=== PATIENT | male | born 1980 | race Hispanic/Latino ===

== ENCOUNTER → 2019-09-20 | Day surgery (SDC) | payer BC ==
[~2019-09-20] MED LIST: FENTANYL CITRATE/PF 100MCG/2 ML INJ ONE; GLUCAGON FOR INJ 1 MG VIAL ONE; HYOSCYAMINE 0.125 MG TAB ONE; LIDOCAINE HCL 2% LOCAL INJ 5 ML SDV VIAL INJ ONE; MIDAZOLAM HCL 2 MG/2 ML VIAL ONE; PROPOFOL IV EMULSION 10 MG/ML 20 ML VIAL ONE; SODIUM CHLORIDE 0.45% 1,000 ML ONE; ZYRTEC10 M3 PO
--- OUTSIDE RECORDS SUMMARY | 2019-09-20 13:39 | XMS REPORT | Summary of Care ---
Author Author [facility] Organization [facility] Address Unknown Phone Unavailable Encounter CLARE Jiménez(YVES) [phone] Date(s): 01/04/18 - 01/04/18 [facility] [address] [place] [address]- [phone] Encounter Diagnosis Arthritis of shoulder region, left (Discharge Diagnosis) - 01/04/18 Primary osteoarthritis, left shoulder (Final) - 01/09/18 Personal history of nicotine dependence (Final) - Discharge Disposition: Home or Self Care Attending Physician: Laz Hollis MD Vital Signs Most recent to 1 2 oldest [Reference Range]: Height 170.18 cm (01/04/18 12:23 PM) Temperature Oral 98.4 DegF 98 DegF [96.4-99.1 DegF] (01/04/18 2:18 PM) (01/04/18 12:23 PM) Blood Pressure 145/93 mmHg 152/89 mmHg [90-140/60-90 mmHg] *HI* *HI* (01/04/18 2:18 PM) (01/04/18 12:23 PM) Respiratory Rate 15 BRMIN 17 BRMIN [14-20 BRMIN] (01/04/18 2:18 PM) (01/04/18 12:23 PM) Peripheral Pulse 65 bpm 71 bpm Rate [60-100 bpm] (01/04/18 2:18 PM) (01/04/18 12:23 PM) Weight 90.909 kg (01/04/18 12:23 PM) Body Mass Index 31.39 m2 (01/04/18 12:23 PM) Problem List Condition Effective Dates Status Health Status Informan t Hyperkalemia(Confirm Resolved ed) Prediabetes(Confirme Resolved d) Allergies, Adverse Reactions, Alerts Substance Reaction Severity Status NKDA Active Medications ketOROLAC 60 mg, Route: IM, Drug form: INJ, ONCE, Dosing Weight 90.909, kg, Priority: STAT , Start date: 01/04/18 12:34:00 CDT, Stop date: 01/04/18 12:34:00 CDT Start Date: 01/04/18 Stop Date: 01/04/18 Status: Completed naproxen 500 mg oral tablet 500 mg = 1 tab, PO, BID, PRN Pain, X 15 day, # 30 tab, 0 Refill(s) Start Date: 01/04/18 Stop Date: 01/19/18 Status: Completed Results No data available for this section Immunizations No data available for this section Procedures No data available for this section Social History Social History Type Response Smoking Status Former smoker; Type: Cigare ttes; Exposure to Tobacco Smoke None; Cigarette Smoking Last 365 Days Yes; Reg Smoking Cessation Counseling No entered on: 06/28/18 Assessment and Plan No data available for this section
--- OUTSIDE RECORDS SUMMARY | 2019-09-20 13:39 | XMS REPORT | CCD ---
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 Name Role Phone Sherine Shelley CP Allergies, Adverse Reactions, Alerts Substance Reaction Status NKDA Active Problem List Condition Effective Dates Status Hyperkalemia Resolved Prediabetes Resolved Medications Medication Instructions Start Date End Date Status Sodium Chloride 0.9% 1,000 mL, Rate: 1,000 ml/hr, Infuse 10/201202/10/2013 Completed (Bolus) IV 1,000 mL over: 1 hr, Route: IV, Dosi ng Weight 88.636 kg, Total Volume: 1,000, Priority: STAT, Start date: 02/10/13 16:23:00, Duration: 1 doses or times, Stop date: 02/10/13 17:22:00, Bolus Dose Bolus Dose meclizine 25 mg oral 25 mg, 1 tab, PO, TID, PRN, 30 tab, 10/2012 Ordered tablet dizziness, Substitution All owed, TAB Vital Signs Most recent to oldest [Reference Range]: 1 Height 170.18 cm (02/10/2013 15:53:00) Temperature Oral [96.4-99.1 DegF] 97.6 DegF (02/10/2013 15:53:00) Systolic Blood Pressure [90-140 mmHg] 135 mmHg (02/10/2013 15:53:00) Diastolic Blood Pressure [60-90 mmHg] 82 mmHg (02/10/2013 15:53:00) Respiratory Rate [14-20 BRMIN] 18 BRMIN (02/10/2013 15:53:00) Peripheral Pulse Rate [60-100 bpm] 67 bpm (02/10/2013 15:53:00) Weight 88.636 kg (02/10/2013 15:53:00) Results URINALYSIS Most recent to oldest [Reference Range]: 1 UA Turbidity [Clear] Clear (02/10/2013 16:50:00) UA Color [Yellow] Yellow *NA* (02/10/2013 16:50:00) UA pH [5.0-8.0] 6.5 (02/10/2013 16:50:00) UA Spec Grav [<=1.030] 1.025 (02/10/2013 16:50:00) UA Glucose [Negative mg/dL] Negative mg/dL (02/10/2013 16:50:00) UA Blood [Negative] Negative (02/10/2013 16:50:00) UA Ketones [Negative mg/dL] Negative mg/dL *NA* (02/10/2013 16:50:00) UA Protein [Negative mg/dL] Negative mg/dL (02/10/2013 16:50:00) UA Urobilinogen [0.1-1.0 EU/dL] 0.2 EU/dL (02/10/2013 16:50:00) UA Bili [Negative] Negative *NA* (02/10/2013 16:50:00) UA Leuk Est [Negative] Negative (02/10/2013 16:50:00) UA Nitrite [Negative] Negative (02/10/2013 16:50:00) UA Bacteria [None Seen /HPF] Occasional /HPF (02/10/2013 16:50:00) UA Sq Epi [Few] None Seen (02/10/2013 16:50:00) CHEMISTRY Most recent to oldest [Reference Range]: 1 Sodium Lvl [135-145 mEq/L] 140 mEq/L (02/10/2013 16:50:00) Potassium Lvl [3.5-5.1 mEq/L] 4.5 mEq/L (02/10/2013 16:50:00) Chloride Lvl [95-109 mEq/L] 106 mEq/L (02/10/2013 16:50:00) CO2 [24-32 mEq/L] 27 mEq/L (02/10/2013 16:50:00) AGAP [10.0-20.0 mEq/L] 11.5 mEq/L (02/10/2013 16:50:00) Creatinine Lvl [0.5-1.4 mg/dL] 0.9 mg/dL (02/10/2013 16:50:00) eGFR 111 mL/min/1.73m2 1 *NA* (02/10/2013 16:50:00) BUN [7-22 mg/dL] 15 mg/dL (02/10/2013 16:50:00) B/C Ratio [6-25] 17 (02/10/2013 16:50:00) Glucose Lvl [70-99 mg/dL] 105 mg/dL 2 *HI* (02/10/2013 16:50:00) Total Protein [6.4-8.4 g/dL] 7.8 g/dL (02/10/2013 16:50:00) Albumin Lvl [3.5-5.0 g/dL] 4.3 g/dL (02/10/2013 16:50:00) Globulin [2.0-4.0 g/dL] 3.5 g/dL (02/10/2013 16:50:00) A/G Ratio [0.7-1.6] 1.2 (02/10/2013 16:50:00) Calcium Lvl [8.5-10.5 mg/dL] 9.3 mg/dL (02/10/2013 16:50:00) Magnesium Lvl [1.8-2.4 mg/dL] 2.0 mg/dL (02/10/2013 16:50:00) ALT [0-65 unit/L] 64 unit/L (02/10/2013 16:50:00) AST [0-37 unit/L] 20 unit/L (02/10/2013 16:50:00) Alk Phos [39-136 unit/L] 77 unit/L (02/10/2013 16:50:00) Bili Total [0.2-1.3 mg/dL] 0.6 mg/dL (02/10/2013 16:50:00) Bili Direct [0.0-0.3 mg/dL] 0.2 mg/dL (02/10/2013 16:50:00) Lipase Lvl [73-393 unit/L] 112 unit/L (02/10/2013 16:50:00) Total CK [12-191 unit/L] 361 unit/L *HI* (02/10/2013 16:50:00) CK MB [0.5-3.6 ng/mL] 0.6 ng/mL (02/10/2013 16:50:00) CK MB Index [0.0-2.5] 0.2 (02/10/2013 16:50:00) Troponin-I [0.00-0.40 ng/mL] <0.02 ng/mL (02/10/2013 16:50:00) 1Result Comment: The eGFR is calculated using the CKD-EPI formula. In most young, healthy individuals the eGFR will be >90 mL/min/1.73m2. The eGFR declines with age. An eGFR of 60-89 may be normal in some populations, particularly the elderly, for whom the CKD-EPI formula has not been extensively validated. Use of the eGFR is not recommended in the following populations: Individuals with unstable creatinine concentrations, including patients and those with serious co-morbid conditions. Patients with extremes in muscle mass or diet. The data above are obtained from the National Kidney Disease Education Program ( NKDEP) which additionally recommends that when the eGFR is used in patients with extremes of body mass index for purposes of drug dosing, the eGFR should be mul tiplied by the estimated BMI. 2Interpretive Data: Adult reference range values reflect the clinical guidelines of the [place] [employer]. HEMATOLOGY Most recent to oldest [Reference Range]: 1 WBC [3.7-10.4 K/CMM] 10.0 K/CMM (02/10/2013 16:50:00) RBC [4.70-6.10 M/CMM] 5.09 M/CMM (02/10/2013 16:50:00) Hgb [14.0-18.0 g/dL] 15.8 g/dL (02/10/2013 16:50:00) Hct [42.0-54.0 %] 47.0 % (02/10/2013 16:50:00) MCV [80.0-94.0 fL] 92.3 fL (02/10/2013 1650:00) MCH [27.0-31.0 pg] 31.1 pg *HI* (02/10/201350:) MCHC [32.0-36.0 g/dL] 33.7 g/dL (02/10/2013 16:50:00) RDW [11.5-14.5 %] 13.5 % (02/10/2013 16:50:00) Platelet [133-450 K/CMM] 315 K/CMM (02/10/2013 16:50:00) MPV [7.4-10.4 fL] 7.5 fL (02/10/2013 16:50:00) Segs [45.0-75.0 %] 86.4 % *HI* (02/10/2013 16:50:00) Lymphocytes [20.0-40.0 %] 9.9 % *LOW* (02/10/2013 16:50:00) Monocytes [2.0-12.0 %] 3.2 % (02/10/2013 16:50:00) Eosinophils [0.0-4.0 %] 0.2 % (02/10/2013 16:50:00) Basophils [0.0-1.0 %] 0.3 % (02/10/2013 16:50:00) Segs-Bands # [1.5-8.1 K/CMM] 8.7 K/CMM *HI* (02/10/2013 16:50:00) Lymphocytes # [1.0-5.5 K/CMM] 1.0 K/CMM (02/10/2013 16:50:00) Monocytes # [0.0-0.8 K/CMM] 0.3 K/CMM (02/10/2013 16:50:00) Eosinophils # [0.0-0.5 K/CMM] 0.0 K/CMM (02/10/2013 16:50:00) Basophils # [0.0-0.2 K/CMM] 0.0 K/CMM (02/10/2013 16:50:00) IMMUNOLOGY Most recent to oldest [Reference Range]: 1 CDC-HIV 1/2 Ab [Negative] Negative *NA* (02/10/2013 16:50:00)
--- OUTSIDE RECORDS SUMMARY | 2019-09-20 13:39 | XMS REPORT | CCD ---
Author Author [facility] Address Unknown Phone Unavailable Care Team Providers Care Senior Manager [employer] Name Role Phone Sherine Shelley CP Allergies, [...] values reflect the clinical guidelines of the [place] [employer]. HEMATOLOGY Most recent to oldest [...]
--- OUTSIDE RECORDS SUMMARY | 2019-09-20 13:39 | XMS REPORT | CCD ---
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 HEMATOLOGY Most recent to oldest [...] 1/2 Ab [Negative] Negative *NA* (02/10/2013 16:50:00) Procedures Procedures Date Related Diagnosis Emergency department visit for the evaluation and man agement 02/10/2013 00:00:00 of a patient, which requires these 3 ke y components: A detailed history; A detailed examinatio n; and Medical decision making of moderate complexity. Counseling and/or coordination of care with o Injection or Infusion of Other Therapeutic or Prophyl actic 02/10/2013 00:00:00 Substance Intravenous infusion, hydration; initial, 31 minutes to 1 02/10/2013 00:00:00 hour
--- OUTSIDE RECORDS SUMMARY | 2019-09-20 13:39 | XMS REPORT | Continuity of Care Document ---
Author Author Bebeto Goal Zero ALONDRA Dean Organization [facility] Address Unknown Phone Unavailable Care Team Providers Care Striker Off Name Role Phone [facility] Unavailable Un available Problems Problem Status Onset Date Classification Date Reported Comments Source Pain in right knee 06/28/2018 07/01/2018 [facility] Sprain of unspecified site of right knee , initial encounter 06/28/2018 07/01/2018 [facility] KNEE PAIN Active 06/25/2018 [facility] Calculus of kidney 06/20/2018 06/23/2018 [facility] Crossing vessel and stricture of ureter without hydronephrosis 06/20/2018 06/23/2018 [facility] BACK PAIN Active 06/20/2018 [facility] Primary osteoarthritis, left shoulder 01/04/2018 07/24/2018 [facility] SHOULDER PAIN Active 01/04/2018 [facility] Body mass index (BMI) 30.0-30.9, adult 11/22/2016 11/25/2016 [facility] Elevated blood-pressure reading, without diagnosis of hypertension 11/22/2016 11/25/2016 [facility] Left lower quadrant pain 11/22/2016 11/25/2016 [facility] Fatty (change of) liver, not elsewhere classified 11/22/2016 11/25/2016 [facility] Abnormal findings on diagnostic imaging of other abdominal regions, including retroperitoneum 11/22/2016 11/25/2016 [facility] FLANK PAIN Active 11/22/2016 [facility] CHEST DISCOMFORT Active 06/26/2015 [facility] VOMITING Active 02/10/2013 [facility] Hyperkalemia Resolved Problem 02/16/2013 [facility] Prediabetes Resolved Problem 02/16/2013 [facility] Hyperkalemia (disorder) Resolv ed Problem [facility] Impaired glucose tolerance (disorder) Resolved Problem 07/24/2018 [facility] Personal history of nicotine dependence 07/24/2018 [facility] OTHER CHEST PAIN Active [facility] Medications Medication Details Route Status Patient Instructions Ordering Provider Order Date Source Acetaminophen 300 MG / Codeine Phosphate 30 MG Oral Tablet [Tylenol with Codeine #3] 1 - 2 tab, PO, Q6H, PRN Pain, X 5 day, # 28 tab, 0 Refill(s) Active 06/29/2018 [facility] naproxen 500 mg oral enteric coated sergey yed-release tablet 500 mg = 1 tab, PO, BID, PRN Pain, X 7 d ay, # 14 tab, 0 Refill(s) Active 06/29/2018 [facility] ketOROLAC 30 mg/mL injectable solution 4 days MEDICATION WASTE Product Size: 30 mg Product Wasted: ___ mg Inactive 06/29/2018 [facility] Ondansetron 4 MG Disintegrating Tablet [Zofran] 4 mg = 1 tab, PO, BID, PRN Nausea and Vomiting, Dissolve tab under tongue, # 10 tab, 0 Refill(s) Active 06/20/2018 [facility] tamsulosin 0.4 mg oral capsule 0.4 mg = 1 cap, PO, Bedtime, until stone passed or follow up doctor tells you to stop, # 14 cap, 0 Refill(s) Active 06/20/2018 [facility] tramadol hydrochloride 50 MG Oral Tablet 50 mg = 1 tab, PO, Q6H, PRN Pain, X 10 day, # 20 tab, 0 Refill(s) Active 06/20/2018 [facility] Ibuprofen 400 MG Oral Tablet 4 00 mg = 1 tab, PO, Q6H, PRN Pain, X 10 day, # 60 tab, 0 Refill(s) Active 06/20/2018 [facility] acetaminophen 325 mg oral tablet 650 mg = 2 tab, PO, Q6H, PRN for pain, X 10 day, # 80 tab, 0 Refill(s) Active 06/20/2018 [facility] Omnipaque 300 injectable solution Notes: (Same as:Omnipaque 300). WASTE: F/P - Black; E - Municipal Trash Bin Inactive 06/20/2018 [facility] NS (Bolus) IV 1,000 mL, 1,000 ml/hr, Infuse Over: 1 hr, Route: IV, 1,000, Drug form: INJ, ONCE, Priority: STAT, Dosing Weight 89.545 kg, Start date: 06/20/18 8:40:00 [employer], Stop date: 06/20/18 8:40:00 [employer] Inactive 06/20/2018 [facility] Ibuprofen 400 MG Oral Tablet N otes: (Same as: Motrin) "Do Not Crush" Give with food. Inactive 06/20/2018 [facility] Zofran Notes: (Same as: Zofran ) MEDICATION WASTE Product Size: 4 mg Product Wasted: ___ mg Inactive 06/20/2018 [facility] Tylenol Notes: Max acetaminoph en 4000 mg/day (4 gm/day). (Same as: Tylenol Extra Strength) Inactive 06/20/2018 [facility] Morphine Notes: (Same as:MORPh ine Sulfate) Inactive 06/20/2018 [facility] naproxen 500 mg oral tablet 50 0 mg = 1 tab, PO, BID, PRN Pain, X 15 day, # 30 tab, 0 Refill(s) No Longer Active 01/04/2018 [facility] Ketorolac 60 mg, Route: IM, Dr ug form: INJ, ONCE, Dosing Weight 90.909, kg, Priority: STAT, Start date: 01/04/18 12:34:00 CDT, Stop date: 01/04/18 12:34:00 CDT Inactive 01/04/2018 [facility] Acetaminophen 300 MG / Codeine Phosphate 30 MG Oral Tablet [Tylenol with Codeine #3] 1 tab, PO, Q6H, PRN Pain, X 15 day, # 10 tab, 0 Refill(s) Active 11/22/2016 [facility] Ondansetron 4 MG Disintegrating Tablet [Zofran] 4 mg = 1 tab, PO, BID, PRN Nausea and Vomiting, Dissolve tab under tongue, X 5 day, # 6 tab, 0 Refill(s) Active 11/22/2016 [facility] Saline Flush 0.9% Notes: (Same as: BD Posiflush) Inactive 11/22/2016 [facility] meclizine 25 mg oral tablet 25 mg, 1 tab, PO, TID, PRN, 30 tab, dizziness, Substitution Allowed, TAB Active Frederick on II 02/10/2013 [facility] Sodium Chloride 0.9% (Bolus) IV 1,000 mL 1,000 mL, Rate: 1,000 ml/hr, Infuse over: 1 hr, Route: IV, Dosing Weight 88.636 kg, Total Volume: 1,000, Priority: STAT, Start date: 10/06/13 16:23:00, Duration: 1 doses or times, Stop date: 02/10/13 17:22:00, Bolus DoseBolus Dose Inactive Yusef II 02/10/2013 [facility] Allergies, Adverse Reactions, Alerts No Known Medication Allergies Immunizations No Data Provided for This Section Results Order Name Results Value Reference Range Date Interpretation Comments Source CHEM PANEL Lipase Lvl 128 73 - 393 06/20/2018 [facility] CHEM PANEL Albumin Lvl 4.1 3.5 - 5.0 06/20/2018 [facility] CHEM PANEL Bili Direct 0.2 0.0 - 0.3 06/20/2018 [facility] CHEM PANEL Bili Indirect 0.5 0.0 - 1.0 06/20/2018 [facility] CHEM PANEL Bili Total 0.7 0.2 - 1.3 06/20/2018 [facility] CHEM PANEL ALT 51 0 - 65 06/20/2018 [facility] CHEM [facility] Total Protein 7.5 6.4 - 8.4 06/20/2018 [facility] CHEM PANEL AST 22 0 - 37 06/20/2018 [facility] CHEM PANEL Alk Phos 52 39 - 136 06/20/2018 [facility] CHEM PANEL Globulin 3.4 2.7 - 4.2 06/20/2018 [facility] CHEM PANEL A/G Ratio 1.2 0.7 - 1.6 06/20/2018 [facility] CHEM PANEL Lactic Acid Lvl 2.2 0.5 - 2.2 06/20/2018 [facility] CHEM PANEL Glucose Lvl 120 70 - 99 06/20/2018 [facility] CHEM PANEL BUN 9 7 - 22 06/20/2018 [facility] CHEM PANEL Potassium Lvl 3.3 3.5 - 5.1 06/20/2018 [facility] CHEM PANEL Sodium Lvl 138 135 - 145 06/20/2018 [facility] CHEM PANEL Chloride Lvl 103 95 - 109 06/20/2018 [facility] CHEM PANEL CO2 27 24 - 32 06/20/2018 [facility] CHEM PANEL Calcium Lvl 8.4 8.5 - 10.5 06/20/2018 [facility] CHEM PANEL eGFR 84 06/20/2018 Result Comment: The eGFR is calculated using the [...] from the National Kidney Disease Education Program (NKDEP) which additionally recommends that when the eGFR is used in patients with extremes of body mass index for purposes of drug dosing, the eGFR should be multiplied by the estimated BMI. [facility] CHEM PANEL Creatinine Lvl 1.10 0.50 - 1.40 06/20/2018 [facility] CHEM PANEL AGAP 11.3 10.0 - 20.0 06/20/2018 [facility] HEMATOLOGY RBC 5.20 4.70 - 6.10 06/20/2018 [facility] Hgb 15.7 14.0 - 18.0 06/20/2018 [facility] WBC 4.7 3.7 - 10.4 06/20/2018 [facility] MCV 92.0 80.0 - 94.0 06/20/2018 [facility] Hct 47.8 42.0 - 54.0 06/20/2018 [facility] RDW 13.5 11.5 - 14.5 06/20/2018 [facility] MCHC 32.8 32.0 - 36.0 06/20/2018 [facility] MCH 30.1 27.0 - 31.0 06/20/2018 [facility] MPV 7.7 7.4 - 10.4 06/20/2018 [facility] Platelet 310 133 - 450 06/20/2018 [facility] Basophils # 0.0 0.0 - 0.2 06/20/2018 [facility] Lymphocytes # 1.4 1.0 - 5.5 06/20/2018 [facility] Neutrophils # 2.8 1.5 - 8.1 06/20/2018 [facility] Eosinophils # 0.1 0.0 - 0.5 06/20/2018 [facility] Monocytes # 0.4 0.0 - 0.8 06/20/2018 [facility] Lymphocytes 29.6 20.0 - 40.0 06/20/2018 [facility] Basophils 0.7 0.0 - 1.0 06/20/2018 [facility] Eosinophils 1.5 0.0 - 4.0 06/20/2018 [facility] HEMATOLOGY Segs 60.1 45.0 - 75.0 06/20/2018 [facility] HEMATOLOGY Monocytes 8.1 2.0 - 12.0 06/20/2018 [facility] CHEM PANEL Lipase Lvl 105 73 - 393 11/22/2016 [facility] CHEM PANEL B/C Ratio 12 6 - 25 11/22/2016 [facility] CHEM PANEL AGAP 9.9 10.0 - 20.0 11/22/2016 [facility] CHEM PANEL A/G Ratio 1.1 0.7 - 1.6 11/22/2016 [facility] CHEM PANEL Globulin 3.7 2.7 - 4.2 11/22/2016 [facility] CHEM PANEL eGFR 84 11/22/2016 Result Comment: The eGFR is calculated using the [...] from the National Kidney Disease Education Program (NKDEP) which additionally recommends that when the eGFR is used in patients with extremes of body mass index for purposes of drug dosing, the eGFR should be multiplied by the estimated BMI. [facility] CHEM PANEL Bili Total 0.8 0.2 - 1.3 11/22/2016 [facility] CHEM PANEL Total Protein 7.7 6.4 - 8.4 11/22/2016 [facility] CHEM PANEL Albumin Lvl 4.0 3.5 - 5.0 11/22/2016 [facility] CHEM PANEL ALT 78 0 - 65 11/22/2016 [facility] CHEM PANEL AST 29 0 - 37 11/22/2016 [facility] CHEM PANEL Alk Phos 64 39 - 136 11/22/2016 [facility] CHEM PANEL Glucose Lvl 106 70 - 99 11/22/2016 [facility] CHEM PANEL BUN 13 7 - 22 11/22/2016 [facility] CHEM PANEL Creatinine Lvl 1.11 0.50 - 1.40 11/22/2016 [facility] CHEM PANEL Sodium Lvl 138 135 - 145 11/22/2016 [facility] CHEM PANEL Potassium Lvl 3.9 3.5 - 5.1 11/22/2016 [facility] CHEM PANEL Chloride Lvl 104 95 - 109 11/22/2016 [facility] CHEM PANEL Calcium Lvl 8.9 8.5 - 10.5 11/22/2016 [facility] CHEM PANEL CO2 28 24 - 32 11/22/2016 [facility] Basophils # 0.0 0.0 - 0.2 11/22/2016 [facility] HEMATOLOGY Segs 71.5 45.0 - 75.0 11/22/2016 [facility] Lymphocytes 20.6 20.0 - 40.0 11/22/2016 [facility] HEMATOLOGY Basophils 0.4 0.0 - 1.0 11/22/2016 [facility] Eosinophils 0.7 0.0 - 4.0 11/22/2016 [facility] Monocytes 6.8 2.0 - 12.0 11/22/2016 [facility] Segs-Bands # 3.9 1.5 - 8.1 11/22/2016 [facility] Monocytes # 0.4 0.0 - 0.8 11/22/2016 [facility] Lymphocytes # 1.1 1.0 - 5.5 11/22/2016 [facility] Eosinophils # 0.0 0.0 - 0.5 11/22/2016 [facility] Hct 47.4 42.0 - 54.0 11/22/2016 [facility] MCV 90.6 80.0 - 94.0 11/22/2016 [facility] MCHC 34.1 32.0 - 36.0 11/22/2016 [facility] Hgb 16.1 14.0 - 18.0 11/22/2016 [facility] RBC 5.23 4.70 - 6.10 11/22/2016 [facility] WBC 5.5 3.7 - 10.4 11/22/2016 [facility] MCH 30.9 27.0 - 31.0 11/22/2016 [facility] MPV 7.2 7.4 - 10.4 11/22/2016 [facility] Platelet 293 133 - 450 11/22/2016 [facility] RDW 13.6 11.5 - 14.5 11/22/2016 [facility] URINE AND STOOL UA Bacteria Occasional /HPF None Seen /HPF 11/22/2016 [facility] URINE AND STOOL UA Mucus Few /LPF None Seen /LPF 11/22/2016 [facility] URINE AND STOOL UA Blood Negative (11/22/16 8:27 AM) Negative 11/22/2016 [facility] URINE AND STOOL UA Nitrite Negative (11/22/16 8:27 AM) Negative 11/22/2016 [facility] URINE AND STOOL UA Bili Negative *NA* (11/22/16 8:27 AM) Negative 11/22/2016 [facility] URINE AND STOOL UA Ketones Negative mg/dL Negative mg/dL 11/22/2016 [facility] URINE AND STOOL UA Urobilinogen <=1.0 mg/dL 0.1 - 1.0 11/22/2016 [facility] URINE AND STOOL UA Color Yellow 11/22/2016 [facility] URINE AND STOOL UA Sq Epi None Seen 11/22/2016 [facility] URINE AND STOOL UA WBC <1 0 - 5 11/22/2016 [facility] URINE AND STOOL UA RBC <1 0 - 2 11/22/2016 [facility] URINE AND STOOL UA Leuk Est Negative (11/22/16 8:27 AM) Negative 11/22/2016 [facility] URINE AND STOOL UA Turbidity Clear (11/22/16 8:27 AM) Clear 11/22/2016 [facility] URINE AND STOOL UA Glucose Negative mg/dL Negative mg/dL 11/22/2016 [facility] URINE AND STOOL UA pH 5.0 5.0 - 8.0 11/22/2016 [facility] URINE AND STOOL UA Protein Negative mg/dL Negative mg/dL 11/22/2016 [facility] URINE AND STOOL UA Spec Grav 1.023 <=1.030 11/22/2016 [facility] CHEMISTRY Troponin-I <0.02 0.00 - 0.40 02/10/2013 Normal [facility] CHEMISTRY Magnesium Lvl 2.0 1.8 - 2.4 02/10/2013 Normal [facility] CHEMISTRY CK MB 0.6 0.5 - 3.6 02/10/2013 Normal [facility] CHEMISTRY Total CK 361 12 - 191 02/10/2013 HI [facility] CHEMISTRY Creatinine Lvl 0.9 0.5 - 1.4 02/10/2013 Normal [facility] CHEMISTRY Sodium Lvl 140 135 - 145 02/10/2013 Normal [facility] CHEMISTRY Potassium Lvl 4.5 3.5 - 5.1 02/10/2013 Normal [facility] CHEMISTRY Chloride Lvl 106 95 - 109 02/10/2013 Normal [facility] CHEMISTRY BUN 15 7 - 22 02/10/2013 Normal [facility] CHEMISTRY Glucose Lvl 105 70 - 99 02/10/2013 [facility] <sup>2</sup>Interpretive Data: Adult ref erence range values reflect the clinical guidelines
of the [place] [employer]. [facility] CHEMISTRY ASPARTATE TRANSAMINASE 20 0 - 37 02/10/2013 Normal [facility] CHEMISTRY Bili Total 0.6 0.2 - 1.3 02/10/2013 Normal [facility] CHEMISTRY CO2 27 24 - 32 02/10/2013 Normal [facility] CHEMISTRY Alk Phos 77 39 - 136 02/10/2013 Normal [facility] CHEMISTRY ALANINE AMINOTRANSFERASE 6 4 0 - 65 02/10/2013 Normal [facility] CHEMISTRY Albumin Lvl 4.3 3.5 - 5.0 02/10/2013 Normal [facility] CHEMISTRY Total Protein 7.8 6.4 - 8.4 02/10/2013 Normal [facility] CHEMISTRY Calcium Lvl 9.3 8.5 - 10.5 02/10/2013 Normal [facility] CHEMISTRY eGFR 111 02/10/2013 <sup>1</sup>Result Comment: The eGFR is calculated using the CKD-EPI formula. In most young, healthy individuals the eGFR will be >90 mL/min/1.73m2. The eGFR declines with age. An eGFR of 60-89 may be normal in some populations, particularly the elderly, for whom the CKD-EPI formula has not been extensively validated. Use of the eGFR is not recommended in the following populations:& lt;br/>
Individuals with unstable creatinine concentrations, including patients and those with serious co-morbid conditions.

Patients with extremes in muscle mass or diet.

The data above are obtained from the National Kidney Disease Education Program (NKDEP) which additionally recommends that when the eGFR is used in patients with extremes of body mass index for purposes of drug dosing, the eGFR should be multiplied by the estimated BMI. [facility] CHEMISTRY Globulin 3.5 2.0 - 4.0 02/10/2013 Normal [facility] CHEMISTRY B/C Ratio 17 6 - 25 02/10/2013 Normal [facility] CHEMISTRY AGAP 11.5 10.0 - 20.0 02/10/2013 Normal [facility] CHEMISTRY A/G Ratio 1.2 0.7 - 1.6 02/10/2013 Normal [facility] CHEMISTRY Lipase Lvl 112 73 - 393 02/10/2013 Normal [facility] CHEMISTRY CK-MB INDEX 0.2 0.0 - 2.5 02/10/2013 Normal [facility] CHEMISTRY Bili Direct 0.2 0.0 - 0.3 02/10/2013 Normal [facility] HEMATOLOGY MPV 7.5 7.4 - 10.4 02/10/2013 Normal [facility] HEMATOLOGY Platelet 315 133 - 450 02/10/2013 Normal [facility] HEMATOLOGY MCV 92.3 80.0 - 94.0 02/10/2013 Normal [facility] HEMATOLOGY Hct 47.0 42.0 - 54.0 02/10/2013 Normal [facility] HEMATOLOGY WBC X 10x3 10.0 3.7 - 10.4 02/10/2013 Normal [facility] HEMATOLOGY Hgb 15.8 14.0 - 18.0 02/10/2013 Normal [facility] HEMATOLOGY RBC X 10x6 5.09 4.70 - 6.10 02/10/2013 Normal [facility] HEMATOLOGY MCHC 33.7 32.0 - 36.0 02/10/2013 Normal [facility] HEMATOLOGY MCH 31.1 27.0 - 31.0 02/10/2013 HI [facility] HEMATOLOGY RDW 13.5 11.5 - 14.5 02/10/2013 Normal [facility] HEMATOLOGY Basophils 0.3 0.0 - 1.0 02/10/2013 Normal [facility] HEMATOLOGY Monocytes 3.2 2.0 - 12.0 02/10/2013 Normal [facility] HEMATOLOGY Eosinophils 0.2 0.0 - 4.0 02/10/2013 Normal [facility] HEMATOLOGY Segs 86.4 45.0 - 75.0 02/10/2013 [facility] HEMATOLOGY Lymphocytes 9.9 20.0 - 40.0 02/10/2013 LOW [facility] HEMATOLOGY Basophils # 0.0 0.0 - 0.2 02/10/2013 Normal [facility] HEMATOLOGY Monocytes # 0.3 0.0 - 0.8 02/10/2013 Normal [facility] HEMATOLOGY Eosinophils # 0.0 0.0 - 0.5 02/10/2013 Normal [facility] HEMATOLOGY Segs-Bands # 8.7 1.5 - 8.1 02/10/2013 HI [facility] HEMATOLOGY Lymphocytes # 1.0 1.0 - 5.5 02/10/2013 Normal [facility] IMMUNOLOGY CDC-HIV 1/2 Ab Negat nikki *NA* (02/10/2013 16:50:00) Negati ve 02/10/2013 [facility] URINALYSIS UA Bili Negat nikki *NA* (02/10/2013 16:50:00) Negati ve 02/10/2013 [facility] URINALYSIS UA Blood Negat nikki (02/10/2013 16:50:00) Negati ve 02/10/2013 Normal [facility] URINALYSIS UA Ketones Negat nikki mg/dL Negative 02/10/2013 [facility] URINALYSIS UA Nitrite Negat nikki (02/10/2013 16:50:00) Negati ve 02/10/2013 Normal [facility] URINALYSIS UA Leuk Est Negat nikki (02/10/2013 16:50:00) Negati ve 02/10/2013 Normal [facility] URINALYSIS UA Urobilinogen 0.2 0.1 - 1.0 02/10/2013 Normal [facility] URINALYSIS UA Turbidity Clear (02/10/2013 16:50:00) Clear 02/10/2013 Normal [facility] URINALYSIS UA Glucose Negat nikki mg/dL Negative 02/10/2013 Normal [facility] URINALYSIS UA Protein Negat nikki mg/dL Negative 02/10/2013 Normal [facility] URINALYSIS UA Spec Grav 1.025 <=1.030 02/10/2013 Normal [facility] URINALYSIS UA pH 6.5 5.0 - 8.0 02/10/2013 Normal [facility] URINALYSIS UA Color Yello w *NA* (02/10/2013 16:50:00) Yellow 02/10/2013 [facility] URINALYSIS UA Sq Epi None Seen (02/10/2013 16:50:00) Few 02/10/2013 Normal [facility] URINALYSIS UA Bacteria Occas ional /HPF None Seen 02/10/2013 Normal [facility] Pathology Reports No Data Provided for This Section Diagnostic Reports Report Value Date Source Knee series 3 views DX Patient Name: ALONDRA GRISSOM : 1980; Age: 38 years Male MR: [id number] Study: Knee series 3 views DX 06/28/2018 8:16 PM [employer] Clinical Indication: - pain and swelling. COMPARISON: None FINDINGS: Views and laterality: 3 views. Right knee. No acute fracture or dislocation. The joint spaces appear preserved. Large suprapatellar joint effusion is present. If there is further concern, recommend follow-up radiographs or MRI for complete assessment. IMPRESSION: Large suprapatellar joint effusion. No acute fracture delineated. SL: MARV 06/28/2018 [facility] ED Abdomen/Pelvis IV contrast only CT EXAM: CT ABDOMEN PELVIS WITH CONTRAST CLINICAL INDICATION: 38 years old Male with left flank and left lower quadrant pain, on treatment for diverticulitis. TECHNIQUE: GI CONTRAST: None. IV CONTRAST: 84 cc of Omnipaque-300 Axial post-contrast images were obtained from the lower chest to the symphysis pubis. Coronal and sagittal reconstruction images were performed. CT imaging performed at this location utilizes radiation dose optimization techniques which include one or more of the following: -Automated exposure control -Adjustment of the mA and/or kV accordin g to patient size -Use of iterative reconstruction [employer] ue CT Radiation Dose DLP 473 mGy-cm COMPARISON: CT abdomen/pelvis 11/22/2016 FINDINGS: LOWER CHEST: The visualized lung bases are clear. Normal size of the heart is noted. SOLID ORGANS: Fatty infiltration of the liver. Subcapsular region of hyperdensity again noted in the left hepatic lobe likely representing fatty sparing. No focal hepatic lesion or intrahepatic biliary ductal dilatation is seen. Cholelithiasis. The spleen, pancreas, and adrenal glands are normal in appearance. Obstructing 3 mm left ureterovesicular junction stone with mild hydronephrosis and mild left perinephric/periureteral stranding. Minimal delayed nephrogram on the left. Additional punctate nonobstructing left nephrolithiasis. Right kidney appears unremarkable. BOWEL: The small bowel and colon are normal in caliber without wall thickening. A normal appendix is identified. Left colonic diverticulosis. Question minimal fat stranding in the left lower quadrant without definite bowel wall thickening. PERITONEUM: No free intraperitoneal fluid or air. Small fat-containing umbilical hernia. Small bilateral fat-containing inguinal hernias. RETROPERITONEUM: Normal caliber of the abdominal aorta is noted. No lymphadenopathy is seen. PELVIS: The visualized urinary bladder wall is normal thickness. Organs of reproduction are unremarkable. MUSCULOSKELETAL: No acute osseous abnormality is seen. No destructive lytic or blastic osseous lesion is noted. IMPRESSION: 1. Obstructing 3 mm left ureterovesical junction stone with mild left hydronephrosis. 2. Additional nonobstructing punctate le ft nephrolithiasis. 3. Left colonic diverticulosis. Suggesti on of minimal fat stranding in the left lower quadrant without definite bowel wall thickening may represent a mild/early diverticulitis. 4. Cholelithiasis. 5. Fatty infiltration of the liver. SL: [id number] 06/20/2018 [facility] Shoulder series DX Left Should er Clinical Indication: Left shoulder pain after lifting heavy objects Comparison: None FINDINGS: The Internal rotation, external rotation, and axillary views of the left shoulder show normal alignment at the glenohumeral joint. There are no fractures or dislocations. The acromioclavicular joint and coracoclavicular spaces are intact. The acromion and coracoid processes appear unremarkable. The subacromial space is unremarkable. The visualized scapula and clavicle are unremarkable. There are no radiopaque foreign bodies. There is no soft tissue swelling. If there is further concern, followup radiographs or MRI of the shoulder may be performed for complete assessment. IMPRESSION: No fractures or dislocations of the shoulder. SL: [id number] 01/04/2018 [facility] Abdomen/Pelvis wo IV contrast CT Patient Name: ALONDRA GRISSOM : 1980; Age: 36 years y/o Male MR: [id number] Study: Abdomen/Pelvis wo IV contrast CT 11/22/2016 7:30 AM CDT Ordering Physician:Josesito Lawson Clinical Indication: Abdominal pain, acute - Left lower quadrant abdominal tenderness stone versus diverticulitis pain x 2 days. Comparison: None TECHNIQUE: Helical imaging was performed from the diaphragms through the symphysis without IV contrast per request of the referring physician. Multiplanar reformations were acquired. GI CONTRAST: Yes The lack of IV contrast limits evaluation of the major organs. DOSE: Total DLP 895.79 mGy-cm FINDINGS: SOLID ORGANS: 3.7 mm calculus in the lower pole of left kidney. No hydroureteronephrosis. Diffusely diminished attenuation throughout the liver. 2.9 cm ill-defined oval area of increased attenuation in the subcapsular region of the posterior aspect of the left lobe of the liver. No abnormalities identified in the spleen, gallbladder, biliary system, pancreas, right kidney, or adrenal glands. PERITONEUM AND RETROPERITONEUM: No free intraperitoneal fluid or air. No adenopathy. The aorta is normal. BOWEL: Diverticula scattered throughout the colon. There is a 1.8 cm oval area of focal infiltration of the mesenteric fat immediately cephalad to the proximal sigmoid colon (series 2, images 56, 57). This process is contiguous with the herbert of an adjacent small bowel loop. There is no thickening of the adjacent colonic or small bowel herbert. Normal appendix. PELVIS: No bladder or prostate abnormalities. LOWER CHEST: Minimal reticular fibrotic scarring in the inferior lingula. MUSCULOSKELETAL AND SOFT TISSUES: No significant bony abnormalities. Small umbilical hernia containing omental fat. Small to moderate sized bilateral inguinal hernias containing pelvic fat. IMPRESSION: 1. Focal infiltration of the mesenteric fat in the left lower abdomen as described above without thickening of the adjacent colonic or small bowel herbert. Differential considerations include fat necrosis, small bowel diverticulitis, and less likely Meckel's diverticulitis. 2. 3.7 mm nonobstructing left renal calc ulus. 3. Diffuse fatty infiltration of the deirdre er. 2.9 cm focal abnormality in the left lobe of the liver. Differential considerations include an island of normal hepatic parenchyma and indeterminate mass, the former favored. Follow-up nonemergent MRI of the liver without and with contrast is recommended for further evaluation. 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 COMPARISON: None. IMPRESSION: Grossly normal cardiac silhouette and mediastinum. No focal consolidation, significant pleural effusion or pneumothorax. SL: [id number] 06/26/2015 [facility] Consultation Notes No Data Provided for This Section Discharge Summaries No Data Provided for This Section History and Physicals No Data Provided for This Section Vital Signs Vital Sign Value Date Comments Source Temperature Oral (F) 98.5 F 06/29/2018 [facility] Heart Rate 89 06/29/2018 [facility] Respitory Rate 18 06/29/2018 [facility] Systolic (mm Hg) 117 06/29/2018 [facility] Diastolic (mm Hg) 73 06/29/2018 [facility] Weight 84.091 06/29/2018 [facility] Height 170.18 cm 06/29/2018 [facility] BMI Calculated 29.04 06/29/2018 [facility] Systolic (mm Hg) 122 06/29/2018 [facility] Diastolic (mm Hg) 84 06/29/2018 [facility] Temperature Oral (F) 99.8 F 06/29/2018 [facility] Respitory Rate 18 06/29/2018 [facility] Heart Rate 111 06/29/2018 [facility] Systolic (mm Hg) 159 06/20/2018 [facility] Diastolic (mm Hg) 98 06/20/2018 [facility] Heart Rate 92 06/20/2018 [facility] Respitory Rate 22 06/20/2018 [facility] BMI Calculated 30.02 06/20/2018 [facility] Weight 89.545 06/20/2018 [facility] Temperature Oral (F) 97.7 F 06/20/2018 [facility] Height 172.72 cm 06/20/2018 [facility] Systolic (mm Hg) 153 06/20/2018 [facility] Diastolic (mm Hg) 94 06/20/2018 [facility] Heart Rate 91 06/20/2018 [facility] Respitory Rate 18 06/20/2018 [facility] Respitory Rate 15 01/04/2018 [facility] Systolic (mm Hg) 145 01/04/2018 [facility] Diastolic (mm Hg) 93 01/04/2018 [facility] Heart Rate 65 01/04/2018 [facility] Temperature Oral (F) 98.4 F 01/04/2018 [facility] BMI Calculated 31.39 01/04/2018 [facility] Weight 90.909 01/04/2018 [facility] Height 170.18 cm 01/04/2018 [facility] Temperature Oral (F) 98 F 01/04/2018 [facility] Heart Rate 71 01/04/2018 [facility] Respitory Rate 17 01/04/2018 [facility] Systolic (mm Hg) 152 01/04/2018 [facility] Diastolic (mm Hg) 89 01/04/2018 [facility] Systolic (mm Hg) 115 11/22/2016 [facility] Diastolic (mm Hg) 87 11/22/2016 [facility] Respitory Rate 16 11/22/2016 [facility] Heart Rate 76 11/22/2016 [facility] Weight 88.636 11/22/2016 [facility] Heart Rate 80 11/22/2016 [facility] Respitory Rate 16 11/22/2016 [facility] Temperature Oral (F) 98.2 F 11/22/2016 [facility] Height 170.18 cm 11/22/2016 [facility] BMI Calculated 30.61 11/22/2016 [facility] Systolic (mm Hg) 138 11/22/2016 [facility] Diastolic (mm Hg) 87 11/22/2016 [facility] Height 170.18 cm 02/10/2013 [facility] Weight 88.636 02/10/2013 [facility] Temperature Oral (F) 97.6 F 02/10/2013 [facility] Systolic (mm Hg) 135 02/10/2013 [facility] Diastolic (mm Hg) 82 02/10/2013 [facility] Heart Rate 67 02/10/2013 [facility] Respitory Rate 18 02/10/2013 [facility] Encounters Location Location Details Encounter Type Encounter Number Reason For Visit Attending Provider ADM Date DC Date Status Source [facility] Emergency [id number] VOMITING MAXWELL LAGISETTY 02/10/2013 02/10/2013 Active [facility] Emergency [id number] Brock Sarabia 11/22/2016 11/22/2016 [facility] [id number] Criss Herzogates 10/20/2017 10/20/2017 Medical [facility] Emergency [id number] Laz Andressuzy 01/04/2018 01/04/2018 [facility] Emergency [id number] Dylan Ocasio 06/20/2018 06/20/2018 [facility] Emergency [id number] Dylan Ocasio 06/29/2018 06/29/2018 [facility] Procedures Procedure Code Date Perfomer Comments Source Emergency department visit for the evalu ation and management of a patient, which requires these 3 lundberg components: A detailed history; A detailed examination; and Medical decision making of moderate complexity. Counseling and/[place] [id number] 02/10/2013 [facility] Injection or Infusion of Other Therapeut ic or Prophylactic Substance 99.29 02/10/2013 [facility] Intravenous infusion, hydration; initial , 31 minutes to 1 hour [id number] 02/10/2013 [facility] Assessment and Plan No Data Provided for This Section Plan of Care No Data Provided for This Section Social History Social History Date Source Social History TypeResponse Smoking Status Former smoker; Type: Cigarettes; Exposure to Tobacco Smoke None; Cigarette Smoking Last 365 Days Yes; Reg Smoking Cessation Counseling No entered on: 06/28/18 06/29/2018 [facility] Social History TypeResponse Smoking Status Exposure to Tobacco Smoke None; Cigarette Smoking Last 365 Days Yes; Reg Smoking Cessation Counseling No; Former smoker; Type: Cigarettes entered on: 11/22/16 11/22/2016 [facility] Family History No Data Provided for This Section Advance Directives No Data Provided for This Section Functional Status No Data Provided for This Section
--- OUTSIDE RECORDS SUMMARY | 2019-09-20 13:39 | XMS REPORT | Summary of Care ---
Author Author [facility] Organization [facility] Address Unknown Phone Unavailable Encounter CLARE Jiménez(YVES) [id number] Date(s): 11/22/16 - 11/22/[address] [facility] [address] [place] [address]- Discharge Diagnosis: Kidney stone on left side Discharge Diagnosis: BMI 30.0-30.9,adult Discharge Diagnosis: Elevated blood pressure reading without diagnosis of hypert ension Discharge Diagnosis: Non-surgical left lower quadrant abdominal pain Discharge Diagnosis: Hepatic steatosis Discharge Diagnosis: Abnormal CT of the abdomen Discharge Disposition: Home or Self Care Attending Physician: Brock Sarabia MD Vital Signs Most recent to 1 2 oldest [Reference Range]: Height 170.18 cm (11/22/16 7:15 AM) Temperature Oral 98.2 DegF [96.4-99.1 DegF] (11/22/16 7:15 AM) Blood Pressure 115/87 mmHg 138/87 mmHg [90-140/60-90 mmHg] (11/22/16 9:01 AM) (11/22/16 7:15 AM) Respiratory Rate 16 BRMIN 16 BRMIN [14-20 BRMIN] (11/22/16 9:01 AM) (11/22/16 7:15 AM) Peripheral Pulse 76 bpm 80 bpm Rate [60-100 bpm] (11/22/16 9:01 AM) (11/22/16 7:15 AM) Weight 88.636 kg (11/22/16 7:15 AM) Body Mass Index 30.61 m2 (11/22/16 7:15 AM) Problem List Condition Effective Dates Status Health Status Informan t Hyperkalemia(Confirm Resolved ed) Prediabetes(Confirme Resolved d) Allergies, Adverse Reactions, Alerts Substance Reaction Severity Status NKDA Active Medications Saline Flush 0.9% 10 mL, Route: IVP, Drug Form: INJ, Dosing Weight 88.636, kg, PRN, PRN Line Flush , Start date: 11/22/16 7:30:00 CDT, Duration: 30 day, Stop date: 12/22/16 7:29:0 0 CDT Notes: (Same as: BD Posiflush) Start Date: 11/22/16 Stop Date: 11/22/16 Status: Discontinued Tylenol with Codeine #3 oral tablet 1 tab, PO, Q6H, PRN Pain, X 15 day, # 10 tab, 0 Refill(s) Start Date: 11/22/16 Stop Date: 12/07/16 Status: Ordered Zofran ODT 4 mg oral tablet, disintegrating 4 mg = 1 tab, PO, BID, PRN Nausea and Vomiting, Dissolve tab under tongue, X 5 d ay, # 6 tab, 0 Refill(s) Start Date: 11/22/16 Stop Date: 11/27/16 Status: Ordered Results ELECTROLYTES Most recent to 1 oldest [Reference Range]: Sodium Lvl [135-145 138 mEq/L mEq/L] (11/22/16 8:27 AM) Potassium Lvl 3.9 mEq/L [3.5-5.1 mEq/L] (11/22/16 8:27 AM) Chloride Lvl [95-109 104 mEq/L mEq/L] (11/22/16 8:27 AM) CO2 [24-32 mEq/L] 28 mEq/L (11/22/16 8:27 AM) AGAP [10.0-20.0 9.9 mEq/L mEq/L] *LOW* (11/22/16 8:27 AM) CHEM PANEL Most recent to 1 oldest [Reference Range]: Creatinine Lvl 1.11 mg/dL [0.50-1.40 mg/dL] (11/22/16 8:27 AM) eGFR 84 mL/min/1.73m2 1 *NA* (11/22/16 8:27 AM) BUN [7-22 mg/dL] 13 mg/dL (11/22/16 8:27 AM) B/C Ratio [6-25] 12 (11/22/16 8:27 AM) Glucose Lvl [70-99 106 mg/dL mg/dL] *HI* (11/22/16 8:27 AM) Total Protein 7.7 g/dL [6.4-8.4 g/dL] (11/22/16 8:27 AM) Albumin Lvl [3.5-5.0 4.0 g/dL g/dL] (11/22/16 8:27 AM) Globulin [2.7-4.2 3.7 g/dL g/dL] (11/22/16 8:27 AM) A/G Ratio [0.7-1.6] 1.1 (11/22/16 8:27 AM) Calcium Lvl 8.9 mg/dL [8.5-10.5 mg/dL] (11/22/16 8:27 AM) ALT [0-65 unit/L] 78 unit/L *HI* (11/22/16 8:27 AM) AST [0-37 unit/L] 29 unit/L (11/22/16 8:27 AM) Alk Phos [39-136 64 unit/L unit/L] (11/22/16 8:27 AM) Bili Total [0.2-1.3 0.8 mg/dL mg/dL] (11/22/16 8:27 AM) Lipase Lvl [73-393 105 unit/L unit/L] (11/22/16 8:27 AM) 1Result Comment: The eGFR is calculated using [...] be mul tiplied by the estimated BMI. URINE AND STOOL Most recent to 1 oldest [Reference Range]: UA Turbidity [Clear] Clear (11/22/16 8:27 AM) UA Color Yellow *NA* (11/22/16 8:27 AM) UA pH [5.0-8.0] 5.0 (11/22/16 8:27 AM) UA Spec Grav 1.023 [<=1.030] (11/22/16 8:27 AM) UA Glucose [Negative Negative mg/dL mg/dL] *NA* (11/22/16 8:27 AM) UA Blood [Negative] Negative (11/22/16 8:27 AM) UA Ketones [Negative Negative mg/dL mg/dL] *NA* (11/22/16 8:27 AM) UA Protein [Negative Negative mg/dL mg/dL] (11/22/16 8:27 AM) UA Urobilinogen <=1.0 mg/dL [0.1-1.0 mg/dL] *NA* (11/22/16 8:27 AM) UA Bili [Negative] Negative *NA* (11/22/16 8:27 AM) UA Leuk Est Negative [Negative] (11/22/16 8:27 AM) UA Nitrite Negative [Negative] (11/22/16 8:27 AM) UA WBC [0-5 /HPF] <1 /HPF (11/22/16 8:27 AM) UA RBC [0-2 /HPF] <1 /HPF (11/22/16 8:27 AM) UA Bacteria [None Occasional /HPF Seen /HPF] *NA* (11/22/16 8:27 AM) UA Sq Epi None Seen *NA* (11/22/16 8:27 AM) UA Mucus [None Seen Few /LPF /LPF] *NA* (11/22/16 8:27 AM) HEMATOLOGY Most recent to 1 oldest [Reference Range]: WBC [3.7-10.4 K/CMM] 5.5 K/CMM (11/22/16 8:27 AM) RBC [4.70-6.10 5.23 M/CMM M/CMM] (11/22/16 8:27 AM) Hgb [14.0-18.0 g/dL] 16.1 g/dL (11/22/16 8:27 AM) Hct [42.0-54.0 %] 47.4 % (11/22/16 8:27 AM) MCV [80.0-94.0 fL] 90.6 fL (11/22/16 8:27 AM) MCH [27.0-31.0 pg] 30.9 pg (11/22/16 8:27 AM) MCHC [32.0-36.0 34.1 g/dL g/dL] (11/22/16 8:27 AM) RDW [11.5-14.5 %] 13.6 % (11/22/16 8:27 AM) Platelet [133-450 293 K/CMM K/CMM] (11/22/16 8:27 AM) MPV [7.4-10.4 fL] 7.2 fL *LOW* (11/22/16 8:27 AM) Segs [45.0-75.0 %] 71.5 % (11/22/16 8:27 AM) Lymphocytes 20.6 % [20.0-40.0 %] (11/22/16 8:27 AM) Monocytes [2.0-12.0 6.8 % %] (11/22/16 8:27 AM) Eosinophils [0.0-4.0 0.7 % %] (11/22/16 8:27 AM) Basophils [0.0-1.0 0.4 % %] (11/22/16 8:27 AM) Segs-Bands # 3.9 K/CMM [1.5-8.1 K/CMM] (11/22/16 8:27 AM) Lymphocytes # 1.1 K/CMM [1.0-5.5 K/CMM] (11/22/16 8:27 AM) Monocytes # [0.0-0.8 0.4 K/CMM K/CMM] (11/22/16 8:27 AM) Eosinophils # 0.0 K/CMM [0.0-0.5 K/CMM] (11/22/16 8:27 AM) Basophils # [0.0-0.2 0.0 K/CMM K/CMM] (11/22/16 8:27 AM) Immunizations No data available for this section Procedures No data available for this section Social History Social History Type Response Smoking Status Exposure to Tobacco Smoke N one; Cigarette Smoking Last 365 Days Yes; Reg Smoking Cessation Counseling No; Former smoker; Type: Cigarettes Assessment and Plan No data available for this section
--- OUTSIDE RECORDS SUMMARY | 2019-09-20 13:39 | XMS REPORT | Summary of Care ---
Author Author [facility] Organization [facility] Address Unknown Phone Unavailable Encounter HQ Tino(YVES) [id number] Date(s): 06/20/18 - 06/20/18 [facility] [address] [place] [address]- Encounter Diagnosis Nephrolithiasis (Discharge Diagnosis) - 06/20/18 Acquired ureteropelvic junction (UPJ) obstruction (Discharge Diagnosis) - 06/20/18 Discharge Disposition: Home or Self Care Attending Physician: Dylan Ocasio MD Vital Signs Most recent to 1 2 oldest [Reference Range]: Height 172.72 cm (06/20/18 8:26 AM) Temperature Oral 97.7 DegF [96.4-99.1 DegF] (06/20/18 8:26 AM) Blood Pressure 159/98 mmHg 153/94 mmHg [90-140/60-90 mmHg] *HI* *HI* (06/20/18 10:58 AM) (06/20/18 8:26 AM) Respiratory Rate 22 BRMIN 18 BRMIN [14-20 BRMIN] *HI* (06/20/18 8:26 AM) (06/20/18 10:58 AM) Peripheral Pulse 92 bpm 91 bpm Rate [60-100 bpm] (06/20/18 10:58 AM) (06/20/18 8:26 AM) Weight 89.545 kg (06/20/18 8:26 AM) Body Mass Index 30.02 m2 (06/20/18 8:26 AM) Problem List Condition Effective Dates Status Health Status Informan t Hyperkalemia(Confirm Resolved ed) Prediabetes(Confirme Resolved d) Allergies, Adverse Reactions, Alerts Substance Reaction Severity Status NKDA Active Medications acetaminophen 325 mg oral tablet 650 mg = 2 tab, PO, Q6H, PRN for pain, X 10 day, # 80 tab, 0 Refill(s) Start Date: 06/20/18 Stop Date: 06/30/18 Status: Ordered ibuprofen 400 mg oral tablet 400 mg, 1 tab, Route: PO, Drug form: TAB, ONCE, Dosing Weight 89.545, kg, Priori ty: STAT, Start date: 06/20/18 8:40:00 MICROBIOLOGY LAB ANALYST, Stop date: 06/20/18 8:40:00 MICROBIOLOGY LAB ANALYST Notes: (Same as: Motrin)"Do Not Crush" Give with food. Start Date: 06/20/18 Stop Date: 06/20/18 Status: Completed ibuprofen 400 mg oral tablet 400 mg = 1 tab, PO, Q6H, PRN Pain, X 10 day, # 60 tab, 0 Refill(s) Start Date: 06/20/18 Stop Date: 06/30/18 Status: Ordered morphine Sulfate 4 mg, 1 mL, Route: IVP, Drug form: SOLN, Q20Min, Dosing Weight 89.545, kg, PRN O ther -See Comment, Priority: STAT, Start date: 06/20/18 8:40:00 MICROBIOLOGY LAB ANALYST, Duration: 3 doses or times, Stop date: Limited # of times Notes: (Same as:MORPhine Sulfate) Start Date: 06/20/18 Stop Date: 06/20/18 Status: Discontinued NS (Bolus) IV 1,000 mL, 1,000 ml/hr, Infuse Over: 1 hr, Route: IV, 1,000, Drug form: INJ, ONCE , Priority: STAT, Dosing Weight 89.545 kg, Start date: 06/20/18 8:40:00 MICROBIOLOGY LAB ANALYST, Sto p date: 06/20/18 8:40:00 MICROBIOLOGY LAB ANALYST Start Date: 06/20/18 Stop Date: 06/20/18 Status: Completed Omnipaque 300 injectable solution 85 mL, Route: IVP, Drug Form: SOLN, Dosing Weight 89.545, kg, ONCALL, GFR > 45 mL/min, STAT, Start date: 06/20/18 9:30:00 MICROBIOLOGY LAB ANALYST, Duration: 1 doses or times Notes: (Same as:Omnipaque 300).WASTE: F/P - Black; E - Municipal Trash Bin Start Date: 06/20/18 Stop Date: 06/20/18 Status: Completed tamsulosin 0.4 mg oral capsule 0.4 mg = 1 cap, PO, Bedtime, until stone passed or follow up doctor tells you to stop, # 14 cap, 0 Refill(s) Start Date: 06/20/18 Status: Ordered tramadol 50 mg oral tablet 50 mg = 1 tab, PO, Q6H, PRN Pain, X 10 day, # 20 tab, 0 Refill(s) Start Date: 06/20/18 Stop Date: 06/30/18 Status: Ordered Tylenol 1,000 mg, 2 tab, Route: PO, Drug form: TAB, ONCE, Dosing Weight 89.545, kg, Prio rity: STAT, Start date: 06/20/18 8:40:00 MICROBIOLOGY LAB ANALYST, Stop date: 06/20/18 8:40:00 MICROBIOLOGY LAB ANALYST Notes: Max acetaminophen 4000 mg/day (4 gm/day). (Same as: Tylenol Extra Streng th) Start Date: 06/20/18 Stop Date: 06/20/18 Status: Completed Zofran 4 mg, 2 mL, Route: IVP, Drug form: INJ, ONCE, Dosing Weight 89.545, kg, Priority : STAT, Start date: 06/20/18 8:40:00 MICROBIOLOGY LAB ANALYST, Stop date: 06/20/18 8:40:00 MICROBIOLOGY LAB ANALYST Notes: (Same as: Zofran) MEDICATION WASTE Product Size: 4 mgProduct Was sunitha: ___ mg Start Date: 06/20/18 Stop Date: 06/20/18 Status: Completed Zofran ODT 4 mg oral tablet, disintegrating 4 mg = 1 tab, PO, BID, PRN Nausea and Vomiting, Dissolve tab under tongue, # 10 tab, 0 Refill(s) Start Date: 06/20/18 Stop Date: 06/25/18 Status: Ordered Results ELECTROLYTES Most recent to 1 oldest [Reference Range]: Sodium Lvl [135-145 138 mEq/L mEq/L] (06/20/18 8:55 AM) Potassium Lvl 3.3 mEq/L [3.5-5.1 mEq/L] *LOW* (06/20/18 8:55 AM) Chloride Lvl [95-109 103 mEq/L mEq/L] (06/20/18 8:55 AM) CO2 [24-32 mEq/L] 27 mEq/L (06/20/18 8:55 AM) AGAP [10.0-20.0 11.3 mEq/L mEq/L] (06/20/18 8:55 AM) CHEM PANEL Most recent to 1 oldest [Reference Range]: Creatinine Lvl 1.10 mg/dL [0.50-1.40 mg/dL] (06/20/18 8:55 AM) eGFR 84 mL/min/1.73m2 1 *NA* (06/20/18 8:55 AM) BUN [7-22 mg/dL] 9 mg/dL (06/20/18 8:55 AM) Glucose Lvl [70-99 120 mg/dL mg/dL] *HI* (06/20/18 8:55 AM) Total Protein 7.5 g/dL [6.4-8.4 g/dL] (06/20/18 8:55 AM) Albumin Lvl [3.5-5.0 4.1 g/dL g/dL] (06/20/18 8:55 AM) Globulin [2.7-4.2 3.4 g/dL g/dL] (06/20/18 8:55 AM) A/G Ratio [0.7-1.6] 1.2 (06/20/18 8:55 AM) Calcium Lvl 8.4 mg/dL [8.5-10.5 mg/dL] *LOW* (06/20/18 8:55 AM) ALT [0-65 unit/L] 51 unit/L (06/20/18 8:55 AM) AST [0-37 unit/L] 22 unit/L (06/20/18 8:55 AM) Alk Phos [39-136 52 unit/L unit/L] (06/20/18 8:55 AM) Bili Total [0.2-1.3 0.7 mg/dL mg/dL] (06/20/18 8:55 AM) Bili Direct [0.0-0.3 0.2 mg/dL mg/dL] (06/20/18 8:55 AM) Bili Indirect 0.5 mg/dL [0.0-1.0 mg/dL] (06/20/18 8:55 AM) Lipase Lvl [73-393 128 unit/L unit/L] (06/20/18 8:55 AM) Lactic Acid Lvl 2.2 mMol/L [0.5-2.2 mMol/L] (06/20/18 8:55 AM) 1Result Comment: The eGFR is calculated [...] be mul tiplied by the estimated BMI. HEMATOLOGY Most recent to 1 oldest [Reference Range]: WBC [3.7-10.4 K/CMM] 4.7 K/CMM (06/20/18 8:55 AM) RBC [4.70-6.10 5.20 M/CMM M/CMM] (06/20/18 8:55 AM) Hgb [14.0-18.0 g/dL] 15.7 g/dL (06/20/18 8:55 AM) Hct [42.0-54.0 %] 47.8 % (06/20/18 8:55 AM) MCV [80.0-94.0 fL] 92.0 fL (06/20/18 8:55 AM) MCH [27.0-31.0 pg] 30.1 pg (06/20/18 8:55 AM) MCHC [32.0-36.0 32.8 g/dL g/dL] (06/20/18 8:55 AM) RDW [11.5-14.5 %] 13.5 % (06/20/18 8:55 AM) MPV [7.4-10.4 fL] 7.7 fL (06/20/18 8:55 AM) Platelet [133-450 310 K/CMM K/CMM] (06/20/18 8:55 AM) Segs [45.0-75.0 %] 60.1 % (06/20/18 8:55 AM) Lymphocytes 29.6 % [20.0-40.0 %] (06/20/18 8:55 AM) Monocytes [2.0-12.0 8.1 % %] (06/20/18 8:55 AM) Eosinophils [0.0-4.0 1.5 % %] (06/20/18 8:55 AM) Basophils [0.0-1.0 0.7 % %] (06/20/18 8:55 AM) Neutrophils # 2.8 K/CMM [1.5-8.1 K/CMM] (06/20/18 8:55 AM) Lymphocytes # 1.4 K/CMM [1.0-5.5 K/CMM] (06/20/18 8:55 AM) Monocytes # [0.0-0.8 0.4 K/CMM K/CMM] (06/20/18 8:55 AM) Eosinophils # 0.1 K/CMM [0.0-0.5 K/CMM] (06/20/18 8:55 AM) Basophils # [0.0-0.2 0.0 K/CMM K/CMM] (06/20/18 8:55 AM) Immunizations No data available for this section Procedures No data available for this section Social History Social History Type Response Smoking Status Former smoker; Type: Cigare ttes; Exposure to Tobacco Smoke None; Cigarette Smoking Last 365 Days Yes; Reg Smoking Cessation Counseling No entered on: 06/20/18 Assessment and Plan No data available for this section
--- OUTSIDE RECORDS SUMMARY | 2019-09-20 13:39 | XMS REPORT | Summary of Care ---
Author Author [facility] Organization [facility] Address Unknown Phone Unavailable Encounter HQ Tino(YVES) [id number] Date(s): 06/28/18 - 06/28/18 [facility] [address] [place] [address]- [phone] Encounter Diagnosis Acute pain of right knee (Discharge Diagnosis) - 06/28/18 Right knee sprain (Discharge Diagnosis) - 06/28/18 Discharge Disposition: Home or Self Care Attending Physician: Dylan Ocasio MD Vital Signs Most recent to 1 2 oldest [Reference Range]: Height 170.18 cm (06/28/18 7:51 PM) Temperature Oral 98.5 DegF 99.8 DegF [96.4-99.1 DegF] (06/28/18 9:41 PM) *HI* (06/28/18 7:51 PM) Blood Pressure 117/73 mmHg 122/84 mmHg [90-140/60-90 mmHg] (06/28/18 9:41 PM) (06/28/18 7:51 PM) Respiratory Rate 18 BRMIN 18 BRMIN [14-20 BRMIN] (06/28/18 9:41 PM) (06/28/18 7:51 PM) Peripheral Pulse 89 bpm 111 bpm Rate [60-100 bpm] (06/28/18 9:41 PM) *HI* (06/28/18 7:51 PM) Weight 84.091 kg (06/28/18 7:51 PM) Body Mass Index 29.04 m2 (06/28/18 7:51 PM) Problem List Condition Effective Dates Status Health Status Informan t Hyperkalemia(Confirm Resolved ed) Prediabetes(Confirme Resolved d) Allergies, Adverse Reactions, Alerts Substance Reaction Severity Status NKDA Active Medications ketOROLAC 30 mg/mL injectable solution 30 mg, 1 mL, Route: IM, Drug form: INJ, ONCE, Dosing Weight 84.091, kg, Priority : STAT, Start date: 06/28/18 20:15:00 HEADEND TECHNICIAN, Stop date: 06/28/18 20:15:00 HEADEND TECHNICIAN Notes: (Same as:Toradol) IV bolus must be given >15 seconds. Give IM administration slowly and deeply into the muscle.Not for use > 4 days MEDICATION WASTE Product Size: 30 mgProduct Wasted: ___ mg Start Date: 06/28/18 Stop Date: 06/28/18 Status: Completed naproxen 500 mg oral enteric coated delayed-release tablet 500 mg = 1 tab, PO, BID, PRN Pain, X 7 day, # 14 tab, 0 Refill(s) Start Date: 06/28/18 Stop Date: 07/05/18 Status: Ordered Tylenol with Codeine #3 oral tablet 1 - 2 tab, PO, Q6H, PRN Pain, X 5 day, # 28 tab, 0 Refill(s) Start Date: 06/28/18 Stop Date: 07/03/18 Status: Ordered Results No data available for this section [...]
--- OUTSIDE RECORDS SUMMARY | 2019-09-20 13:40 | XMS REPORT ---
Author Author [facility] t Organization [facility] Address [address] [place] [address] Phone Unavailable Care Team Providers Care Food Service Order Clerk Name Role Phone Matt Ocasio Attphys Tra Hollis Attphys Criss Padilla Attphys Carmelo Sarabia Attphys Problems This patient has no known problems. Allergies, Adverse Reactions, Alerts This patient has no known allergies or adverse reactions. Medications This patient has no known medications. Procedures This patient has no known procedures. Encounters Start Date/Time End Date/Time Encounter Type Admission Type Att[facility] Care Department Encounter ID Source 2018-06-28 19:34:00 2018-06-28 22:07:00 Outpatient Dylan Ocasio [facility] [id number] [facility] 2018-06-28 19:34:00 2018-06-28 19:34:00 Emergency E [facility] [id number] [facility] 2018-06-20 08:24:00 2018-06-20 12:38:00 Outpatient Dylan Ocasio [facility] [id number] [facility] 2018-01-04 12:15:00 2018-01-04 14:21:00 Outpatient Laz Hollis [facility] [id number] [facility] 2017-10-20 13:30:00 2017-10-20 13:30:00 Outpatient Remy Padilla [facility] [id number] [facility] 2016-11-22 07:13:00 2016-11-22 09:41:00 Outpatient Brock Sarabia [facility] [id number] [facility] 2013-02-10 15:51:00 2013-02-10 18:34:00 Outpatient CHRISTOPH PHAN YENNIFER [id number] [facility] Results This patient has no known results.
[2019-09-20 18:35] VITALS: BP 127/84
--- NOTE | 2019-09-20 23:46 | Operative Report ---
DATE OF PROCEDURE: 09/20/2019 SURGEON: Timmy Zaragoza MD PROCEDURE: Colonoscopy with biopsies. INDICATIONS FOR COLONOSCOPY: Anorectal pain. MEDICATIONS: The patient was done under MAC, please see anesthesiologist's note. PROCEDURE IN DETAIL: With the patient in left lateral decubitus position, a flexible fiberoptic Olympus colonoscope was inserted into the rectum with ease and advanced all the way to the cecum. It was then withdrawn slowly. Mucosa overlying the cecum, ascending colon, transverse colon, and descending colon appeared to be within normal limits. Some diverticular disease was noted in the sigmoid colon. There were some mild patchy inflammatory changes noted in the rectum and biopsies were obtained. The scope was then retroflexed into the distal rectum and small internal hemorrhoids were noted, none of which was actively bleeding. The scope was then straightened out, it was subsequently withdrawn. The patient tolerated the procedure well. IMPRESSION: 1. Diverticulosis. 2. Proctitis, mild. 3. Internal hemorrhoids, none actively bleeding. PLAN: Follow up histology. Initiate high-fiber, low-fat diet. Initiate high-fiber supplement. Initiate hydrocortisone 25 mg suppository b.i.d. x10 days and p.r.n. and Bentyl 10 mg one p.o. t.i.d. Timmy Zaragoza MD [facility] /[id number] cc: Ana Laura Keen MD
== END | disposition home or self-care (01) ==
LOC: OR 13:36
PROVIDERS: ATTEND Internal Medicine Gastroenterology
DX: K62.89 Other specified diseases of anus and rectum (principal); K57.30 Diverticulosis of large intestine without perforation or abscess without bleeding; K64.8 Other hemorrhoids; K86.9 Disease of pancreas, unspecified; K76.0 Fatty (change of) liver, not elsewhere classified; R03.0 Elevated blood-pressure reading, without diagnosis of hypertension; F41.9 Anxiety disorder, unspecified; Z01.810 Encounter for preprocedural cardiovascular examination; Z01.812 Encounter for preprocedural laboratory examination; Z11.59 Encounter for screening for other viral diseases; Z68.32 Body mass index [BMI] 32.0-32.9, adult; Z87.442 Personal history of urinary calculi; Z87.891 Personal history of nicotine dependence
CPT/HCPCS: 45380; 87635; 93005; J1610; J2001; J2250; J2704; J3010; 45378

== ENCOUNTER → 2019-09-23 | Outpatient (CLI) | payer BC ==
[~2019-09-23] MED LIST changes: -FENTANYL CITRATE/PF 100MCG/2 ML INJ ONE; +GADOBENATE DIMEGLUMINE 1 ML IV ONE; -GLUCAGON FOR INJ 1 MG VIAL ONE; -HYOSCYAMINE 0.125 MG TAB ONE; -LIDOCAINE HCL 2% LOCAL INJ 5 ML SDV VIAL INJ ONE; -MIDAZOLAM HCL 2 MG/2 ML VIAL ONE; -PROPOFOL IV EMULSION 10 MG/ML 20 ML VIAL ONE; -SODIUM CHLORIDE 0.45% 1,000 ML ONE; +SODIUM CHLORIDE 0.9% 100 ML ONE
--- NOTE | 2019-09-23 15:06 | Diagnostic Imaging Report ---
MRI of the abdomen, with and without contrast, 09/23/2019. History: Pancreatic lesion. Comparison: 12/13/2016. Technique: Multiplanar, multisequence imaging of the abdomen was performed pre- and post-IV administration of gadolinium. Discussion: The pancreatic contour and size are normal. A 6 mm T1 hypointense T2 hyperintense nonenhancing lesion is again seen in the pancreatic head. There is no evidence of an enhancing pancreatic lesion. The liver is normal in size and enhancement without focal abnormality. The hepatic, portal, splenic, and mesenteric veins are patent. The portal vein is normal in size measuring 1.2 cm in diameter. There is no evidence of ascites. The gallbladder, spleen, kidneys, and adrenal glands are normal in appearance. The visualized loops of bowel and osseous structures are normal. There is no evidence of adenopathy. IMPRESSION: Small benign pancreatic cyst, unchanged since 2017. No further follow-up advised. Otherwise unremarkable exam. Signed by: Nabor Galeas on 09/23/2019 3:03 PM
== END ==
LOC: MRI 12:40
PROVIDERS: ATTEND Internal Medicine Gastroenterology
DX: K86.9 Disease of pancreas, unspecified (principal)
CPT/HCPCS: 74183

== ENCOUNTER → 2022-08-15 | Outpatient (CLI) | payer BC ==
[~2022-08-15] MED LIST changes: -GADOBENATE DIMEGLUMINE 1 ML IV ONE; -SODIUM CHLORIDE 0.9% 100 ML ONE
== END ==
LOC: US 07:35
PROVIDERS: ATTEND Nurse Practitioner
DX: R10.11 Right upper quadrant pain (principal); K76.0 Fatty (change of) liver, not elsewhere classified
CPT/HCPCS: 76700